=== PATIENT | female | born 1985 | race Caucasian/White ===

== ENCOUNTER 2021-05-02 08:50 | Emergency (ER) | payer OTHER, SELFPAY ==
--- NOTE | ~2021-05-02 | CT_ITS ---
EXAMINATION: CT abdomen pelvis w con INDICATION: Lower abdominal pain TECHNIQUE: Computed tomographic images of the abdomen and pelvis were obtained after the administrati on of 100 cc of Omnipaque 350 intravenous contrast. The dose-length product (DLP) was 1764.80 mGy-cm. Automated exposure control and iterative reconstruction technique were employed. COMPARISON: None available FINDINGS: Minimal dependent atelectasis is present in the lung bases. The heart size is normal. Focal low-attenuation of the liver adjacent to the ligamentum teres likely reflects hepatic steatosis. The spleen, pancreas, gallbladder, and adrenal glands are normal cysts of the kidneys measure up to 10 m m on the left. There is cortical scarring of the right kidney. No pathologically enlarged abdominal o r pelvic lymph nodes are identified. There is no free intraperitoneal gas or evidence of bowel obstru ction. The appendix is normal. There is mild lumbar spondylosis. IMPRESSION: 1. No CT correlate for the patient's symptoms. Reviewed, dictated and finalized at location B.
[2021-05-02 09:05] VITALS: BP 150/100; PULSE 119; RESP 16; TEMP 36.6; O2SAT 98
[2021-05-02 09:30] LABS: Basophils Percent Auto 0.3 % (0.2-1.2); Eosinophils Absolute Auto 0.1 K/mm3 (0-0.3); Eosinophils Percent Auto 1.3 % (0-4.4); Hematocrit 40.6 % (37.0-47.0); Hemoglobin 12.8 g/dL (12.0-15.0); Immature Granulocyte Absolute 0.12 K/mm3 (0.00-0.031); Immature Granulocyte Percent A 1.3 % (0-0.5); Lymphocytes Percent Auto 22.7 % (18.3-44.2); Mean Corpuscular HGB Conc 31.5 g/dl (32-36); Mean Corpuscular Hemoglobin 26.4 pg (26-34); Mean Corpuscular Volume 83.7 fl (80-100); Mean Platelet Volume 9.4 fl (7.4-10.4); Monocytes Absolute Auto 0.9 K/mm3 (0.1-0.6); Monocytes Percent Auto 9.3 % (2.6-8.5); Neutrophils Percent Auto 65.1 % (45.5-73.1); Platelet Count Result 250 k/mm3 (150-375); Red Blood Count 4.85 M/mm3 (4.2-5.4); Red Cell Distribution Width 13.2 % (11.5-14.5); White Blood Count 9.2 K/mm3 (4.5-10.0)
[2021-05-02 09:31] LABS: Add Urine Microscopic? YES; Appearance Urine Cloudy (Clear); Bilirubin Urine Negative (Negative); Blood Urine Negative (Negative); Color Urine Yellow (Yellow); Glucose Urine UA Negative (Negative); Ketones Urine Negative (Negative); Leukocyte Esterase Ur Negative LEU/UL (Negative); Mucus Urine Rare /lpf; Nitrate Urine Negative (Negative); Protein Urine Negative (Negative); RBC Urine 0-2 /hpf (0-2); Specific Grav Ur 1.019 (1.001-1.035); Squamous Epithelial Cell Urine Few /hpf (Few); Urobilinogen Urine Negative mg/dL (<2.0)
[2021-05-02 09:38] LABS: Alanine Aminotransferase 41 U/L (4-35); Albumin Level 3.6 g/dL (3.5-5.1); Alkaline Phosphatase 106 U/L (38-126); Anion Gap 5 mmol/L (8-16); Aspartate Amino Transferase 42 U/L (14-36); Bilirubin,Total 0.5 mg/dL (0.2-1.3); Blood Urea Nitrogen 12 mg/dL (7-17); Calcium 8.6 mg/dL (8.4-10.2); Carbon Dioxide 27 mmol/L (22-30); Chloride 107 mmol/L (98-107); Estimated CRCL calculation 135 ml/min; Estimated Glomerular Filt Rate > 60; Glucose 103 mg/dL (65-105); Lipase 66 U/L (23-300); Potassium 3.6 mmol/L (3.4-5.0); Sodium 139 mmol/L (137-145)
--- NOTE | 2021-05-02 10:30 | ED.ABDPAIN ---
HPI - Abdominal Pain General Chief Complaint: Abdominal Pain Stated Complaint: abdominal pain Time Seen by Provider: 05/02/21 09:34 Source: patient and RN notes reviewed Mode of arrival: ambulatory Limitations: no limitations History of Present Illness HPI narrative: Patient is 46 years old white female presents with intermittent diffuse lower abdominal pain for the last 4 weeks, patient noticed a lump at the lower abdomen bilaterally 1 week ago, patient denies any fever, chills, nausea, vomiting, urinary symptoms, vaginal bleeding or discharge. Patient under a lot of stress lately her was diagnosed of testicular cancer scheduled for surgery next week. Patient does not smoke or drink or uses marijuana. No history of abdominal surgery. History of both cystic ovarian disease, Raynaud's phenomena Related Data Allergies Allergy/AdvReac Type Severity Reaction Status Date / Time No Known Allergies Allergy Unverified 07/28/18 08:24 Review of Systems Review of Systems: Narrative: CONSTITUTIONAL: Denies fever, chills, or sweats. EYES: Denies visual changes, redness, or discharge. ENT: Denies rhinorrhea, congestion, sore throat, or otalgia. CARDIOVASCULAR: Denies chest pain, palpitations, or edema. RESPIRATORY: Denies cough or dyspnea. GASTROINTESTINAL: Denies abdominal pain, nausea, vomiting, or diarrhea. GENITOURINARY: Denies dysuria or hematuria. SKIN: Denies rash or itching. MUSCULOSKELETAL: Denies back pain, joint pain, or myalgia. NEUROLOGIC: Denies headache, numbness, or weakness. PSYCHIATRIC: Denies anxiety or depression. Exam Narrative: Exam Narrative: General appearance: Well-developed, well-nourished Skin: Normal color Head: Normocephalic, nontraumatic Eyes: Clear conjunctiva ENT: Oropharynx normal, ears normal, nose normal Neck: Supple, nontender Chest and respiratory: Airway patent, no respiratory distress, no accessory muscle use Heart: Regular rate/rhythm Abdomen: Soft, nontender, no organomegaly, quiet bowel sounds Vascular: Normal peripheral pulses, normal capillary refill. Musculoskeletal: Normal range of motion, nontender back Neurologic: Alert and oriented ?3, [employer] is normal as tested, no gross motor deficit Course Course Emergency Course: Stable Vital Signs Vital signs: Vital Signs Temperature 36.6 C 05/02/21 09:05 Pulse Rate 119 H 05/02/21 09:05 Respiratory Rate 16 05/02/21 09:05 Blood Pressure 150/100 H 05/02/21 09:05 Pulse Oximetry 98 05/02/21 09:05 Temperature 36.6 C 05/02/21 09:05 Pulse Rate 119 H 05/02/21 09:05 Respiratory Rate 16 05/02/21 09:05 Blood Pressure 150/100 H 05/02/21 09:05 Pulse Oximetry 98 05/02/21 09:05 MDM - Abdominal Pain MDM Narrative Medical decision making narrative: Abdominal pain Stress, anxiety related symptom is my concern. Labs, CT abdomen pelvis with IV contrast, UA ordered. Further plan to follow Differential Diagnosis Differential diagnosis: Likely abdominal pain, acute appendicitis, constipation, diverticulitis and pancreatitis Lab Data Result diagrams: 05/02/21 09:15 05/02/21 09:15 Labs: Lab Results 05/02/21 05/02/21 05/02/21 Range/Units 09:15 09:15 09:15 WBC 9.2 (4.5-10.0) K/mm3 RBC 4.85 (4.2-5.4) M/mm3 Hgb 12.8 (12.0-15.0) g/dL Hct 40.6 (37.0-47.0) % MCV 83.7 (80-100) fl MCH 26.4 (26-34) pg MCHC 31.5 L (32-36) g/dl RDW 13.2 (11.5-14.5) % Plt Count 250 (150-375) k/mm3 MPV 9.4 (7.4-10.4) fl Immature Gran % (Auto) 1.3 H (0-0.5) % Neut % (Auto) 65.1 (45.5-73.1) % Lymph % (Auto) 22.7 (18.3-44.2) % Hayes % (Auto) 9.3 H (2.6-8.5) % Eos % (Au
[2021-05-02] MEDS: SODIUM CHLORIDE 0.9% IV 1,000 ML 999 ML IV CONT (10:45)
[2021-05-02 11:59] VITALS: BP 152/97; PULSE 97; RESP 16
== END 2021-05-02 11:57 | disposition home or self-care (01) ==
PROVIDERS: Emergency Provider Emergency Medicine; PCP Family Medicine
DX: R10.84 Generalized abdominal pain (principal)
CPT/HCPCS: 36415; 74177; 80053; 81001; 81025; 83690; 85025; 87077; 87086; 87088; 87186; 96360; 99284; J7030; Q9967

== ENCOUNTER 2021-05-14 16:00 | Emergency (ER) | payer OTHER, SELFPAY ==
--- NOTE | ~2021-05-14 | XR_ITS ---
EXAMINATION: XR chest 2V EXAM DATE: 05/14/2021 16:42 INDICATION: sob, high blood pressure, chest tightness, symptoms 2 days. TECHNIQUE: Frontal and lateral projections of the chest obtained and reviewed. There is no prior zeyad dy for comparison. FINDINGS: The lungs are clear. There are no pleural effusions. The cardiomediastinal silhouette is within normal limits. There is no pneumothorax suspected. The bones and soft tissues are unremarkab le. IMPRESSION: No acute cardiopulmonary findings. Reviewed, dictated and finalized at location A.
--- NOTE | ~2021-05-14 | CT_ITS ---
EXAMINATION: CTA chest PE protocol DATE: 05/14/2021 20:09 INDICATION: Dyspnea TECHNIQUE: Computed tomography (CT) pulmonary angiogram of the chest was performed with 100 mL Omnipa que-350 intravenous contrast. Additional 3D reconstructions utilizing coronal maximum intensity proje ction (MIP) were performed. Automated exposure control and iterative reconstruction technique were em ployed. The dose-length product was 1048.00 mGy-cm. COMPARISON: None FINDINGS: Adequate but suboptimal contrast opacification of the pulmonary arteries. There is mild streak artifa ct from dense contrast in the superior vena cava and right atrium. Minimal scattered respiratory burt on artifact which does not significantly limit evaluation. No pulmonary embolism. No pneumonia, pulmo nary edema or other pulmonary infiltrates. No pleural effusion or pneumothorax. Heart size is normal. No pericardial effusion. Thoracic aorta is normal in caliber with no dissection. No pathologically e nlarged thoracic lymphadenopathy. Focal hepatic steatosis at the ligamentum teres. Likely physiologic chronic appearing mild anterior wedging at T11 and T12. IMPRESSION: 1. No pulmonary embolism or other acute cardiopulmonary disease. Reviewed, dictated and finalized at location A.
[2021-05-14 16:03] VITALS: BP 144/86; PULSE 116; RESP 20; TEMP 37.1; O2SAT 99
--- NOTE | 2021-05-14 16:03 | ECG_ITS ---
Measurements Intervals [place] Rate: 114 P: 54 [place]: 168 QRS: -9 QRSD: 83 T: 18 QT: 329 QTc: 454 Interpretive Statements SINUS TACHYCARDIA POSSIBLE LEFT ATRIAL ENLARGEMENT POOR R WAVE PROGRESSION, ANTERIOR LEADS MINIMAL Q WAVES- INFERIOR LEADS BORDERLINE T WAVE ABNORMALITY- INFERIOR LEADS BASELINE WANDER- V4-V5 ABNORMAL ECG Electronically Signed On 05-14-2021 21:08:03 CDT by Artur Hughes D.O.
[2021-05-14 16:34] LABS: Basophils Absolute Auto 0.1 K/mm3 (0.0-0.1); Basophils Percent Auto 0.6 % (0.2-1.2); Eosinophils Absolute Auto 0.1 K/mm3 (0-0.3); Eosinophils Percent Auto 1.5 % (0-4.4); Hematocrit 42.2 % (37.0-47.0); Hemoglobin 13.2 g/dL (12.0-15.0); Immature Granulocyte Absolute 0.13 K/mm3 (0.00-0.031); Immature Granulocyte Percent A 1.5 % (0-0.5); Lymphocytes Absolute Auto 2.04 K/mm3 (0.9-3.2); Lymphocytes Percent Auto 23.2 % (18.3-44.2); Mean Corpuscular HGB Conc 31.3 g/dl (32-36); Mean Corpuscular Hemoglobin 26.1 pg (26-34); Mean Corpuscular Volume 83.4 fl (80-100); Mean Platelet Volume 9.6 fl (7.4-10.4); Monocytes Absolute Auto 0.7 K/mm3 (0.1-0.6); Neutrophils Absolute Auto 5.7 K/mm3 (1.3-6.7); Neutrophils Percent Auto 65.2 % (45.5-73.1); Platelet Count Result 313 k/mm3 (150-375); Red Blood Count 5.06 M/mm3 (4.2-5.4); Red Cell Distribution Width 13.7 % (11.5-14.5); White Blood Count 8.8 K/mm3 (4.5-10.0)
[2021-05-14 16:38] LABS: Anion Gap 7 mmol/L (8-16); Blood Urea Nitrogen 15 mg/dL (7-17); Calcium 8.8 mg/dL (8.4-10.2); Carbon Dioxide 26 mmol/L (22-30); Chloride 104 mmol/L (98-107); Estimated CRCL calculation 111 ml/min; Estimated Glomerular Filt Rate > 60; Glucose 89 mg/dL (65-105); Potassium 3.8 mmol/L (3.4-5.0); Sodium 137 mmol/L (137-145)
[2021-05-14 18:46] VITALS: BP 153/90; PULSE 109; RESP 18; O2SAT 100
[2021-05-14 19:55] VITALS: BP 140/99
[2021-05-14 20:11] VITALS: BP 150/81; PULSE 108; RESP 19; O2SAT 100
[2021-05-14 20:17] LABS: Troponin I < 0.012 ng/mL (0.000-0.034)
--- NOTE | 2021-05-14 20:33 | ED.SOB ---
HPI - SOB/Dyspnea General Chief Complaint: Shortness of Breath/Dyspnea Stated Complaint: SOB X2D Time Seen by Provider: 05/14/21 19:18 Source: RN notes reviewed History of Present Illness HPI Narrative: Patient presents emergency department from home for shortness of breath. Patient states for the past 2 days she has noted shortness of breath with exertion she states no shortness of breath with rest just she notes that when she is doing activity she states that with this she has no other symptoms she denies any fevers or chills, chest pain, abdominal pain, nausea vomiting or any other symptoms. Patient states she has been worked up for a autoimmune disease and is believed to have Raynaud's patient denies any cough she does states she has not had the Covid vaccine Related Data Allergies Allergy/AdvReac Type Severity Reaction Status Date / Time No Known Allergies Allergy Unverified 07/28/18 08:24 Review of Systems Review of Systems: Narrative: Gen.: Denies fevers or chills ENT: Denies congestion Respiratory: See HPI CV: Denies chest pain or palpitations GI: Denies abdominal pain nausea, emesis or diarrhea denies burning, urgency, frequency or hematuria Musculoskeletal: Denies back pain or muscle pain Neuro: Denies numbness, tingling, weakness or focal weakness Skin: Denies rash Except as documented, all other systems reviewed and negative Exam Narrative: Exam Narrative: APPEARANCE: No acute distress, nontoxic, resting in bed EYES: EOMI HEENT: Normocephalic, atraumatic, OMM RESPIRATORY: No respiratory distress Clear to auscultation bilaterally with no rhonchi wheezing or rales. CARDIOVASCULAR: Regular rate and rhythm without murmurs rubs or gallops. ABDOMINAL: Soft, nontender, nondistended, no rebound or guarding MUSCULOSKELETAl: Moves all extremities. No clubbing, cyanosis or edema. NEURO: Awake and alert. Following commands, speech normal, no focal deficits SKIN:: Warm, dry. No rashes lesions or abrasions PSYCHIATRIC: Normal affect/mood, Course Course Emergency Course: Called and discussed with Dr. Ingram's PA on-call agrees with plan for discharge and will have patient follow-up in the office in neck several days for repeat blood pressure check Discussed with patient results of workup and diagnosis. Discussed need for follow-up with primary care, proper use of medication, and reasons to return to the emergency department. Patient understands and agrees to current treatment plan Vital Signs Vital signs: Vital Signs Temperature 98.8 F 05/14/21 16:03 Pulse Rate 116 H 05/14/21 16:03 Respiratory Rate 20 05/14/21 16:03 Blood Pressure 144/86 H 05/14/21 16:03 Pulse Oximetry 99 05/14/21 16:03 Temperature 98.8 F 05/14/21 16:03 Pulse Rate 108 H 05/14/21 20:11 Respiratory Rate 19 05/14/21 20:11 Blood Pressure 150/81 H 05/14/21 20:11 Pulse Oximetry 100 05/14/21 20:11 MDM - SOB/Dyspnea MDM Narrative Medical decision making narrative: Patient has dyspnea of unclear etiology. No wheezing on clinical exam. No PE seen on CTA chest no pneumonia seen. Patient?s EKG is without high-risk changes. Oxygen saturations are normal. Patient is felt to be a reasonable candidate for additional evaluation as an outpatient.. With the current COVID-19 pandemic and resurgence of delta variant as patient has not been vaccinated will obtain Covid swab Lab Data Result diagrams: 05/14/21 16:16 05/14/21 16:16 Labs: Lab Results 05/14/21 05/14/21 05/14/21 Range/Units 16:16 16:16 19:44 WBC 8.8 (4.5-10.0) K/mm3 RBC 5.06 (4.2-5.4) M/mm3 Hgb 13.2 (12.0-15.0) g/dL Hct 42.2 (37.0-47.0) % MCV 83.4 (80-100) fl MCH 26.1 (26-34) pg MCHC 31.3 L (32-36) g/dl RDW 13.7 (11.5-14.5) % Plt Count 313 (150-375) k/mm3 MPV 9.6 (7.4-10.4) fl Immature Gran % (Auto) 1.5 H (0-0.5) % Neut % (Auto) 65.2 (45.5-73.1) % Lymph % (Auto) 23.2 (18.3-
[2021-05-14] MEDS: SODIUM CHLORIDE 0.9% IV 1,000 ML 999 ML IV CONT (20:37)
[2021-05-14 21:03] LABS: D Dimer < 0.22 ug/mL (<0.48)
[2021-05-14 21:50] VITALS: BP 142/98; PULSE 100; RESP 20; TEMP 36.9; O2SAT 100
--- NOTE | 2021-05-20 11:11 | PC.NURSE ---
Late Entry-Pt discharged prior to obtaining covid swab.
--- NOTE | 2021-05-22 15:19 | PC.NURSE ---
LATE ENTRY This note is being entered to document information to the patient's record. The following information was omitted on [05/14/21], by [Caro Nunez RN]. NS stopped at 2130.
== END 2021-05-14 21:50 | disposition home or self-care (01) ==
PROVIDERS: Emergency Provider Emergency Medicine; PCP Family Medicine
DX: R06.00 Dyspnea, unspecified (principal); R00.0 Tachycardia, unspecified
CPT/HCPCS: 36415; 71046; 71275; 80048; 81025; 84484; 85025; 85380; 93005; 96360; 99284; J7030; Q9967

== ENCOUNTER → 2021-09-13 09:37 | Outpatient (CLI) | payer OTHER, SELFPAY ==
--- NOTE | ~2021-09-13 | US_ITS ---
EXAMINATION: US right upper quadrant DATE: 09/13/2021 10:17 INDICATION: Elevated liver enzymes TECHNIQUE: Multiple grayscale and Doppler ultrasound images of the abdomen were obtained. COMPARISON: None available FINDINGS: Bowel gas obscures visualization of the pancreas. The visualized portions of the pancreas a re unremarkable. The liver is normal with normal echogenicity and echotexture. No surface nodularity. Normal hepatopetal flow in the main portal vein. The gallbladder is normal with no abnormal wall thi ckening, pericholecystic fluid or stones. The normal common bile duct measures 2 mm. There was no son ographic Hayden sign. IMPRESSION: 1. No sonographic correlate for the patient's symptoms. Reviewed, dictated and finalized at location A. [employer]
== END ==
PROVIDERS: PCP Family Medicine; Visit Provider Internal Medicine
DX: R79.89 Other specified abnormal findings of blood chemistry (principal)
CPT/HCPCS: 76705

== ENCOUNTER 2021-11-26 13:07 | Emergency (ER) | payer OTHER, SELFPAY ==
--- NOTE | ~2021-11-26 | XR_ITS ---
XR chest 2V 11/26/2021 14:15 Indication: Left-sided chest pain Procedure: 2 view chest Comparison: 05/14/2021 Findings: Heart size normal. No focal air space disease, pulmonary edema, pleural effusion or suspect ed pneumothorax. No acute osseous abnormality. Impression: 1: No acute cardiopulmonary disease. Reviewed, dictated and finalized at location B. [employer]ER Impression: 1: No acute cardiopulmonary disease.
[2021-11-26 13:52] VITALS: BP 136/89; PULSE 107; RESP 20; TEMP 36.8; O2SAT 100
--- NOTE | 2021-11-26 13:57 | ECG_ITS ---
Measurements Intervals [place] Rate: 102 P: 21 [place]: 140 QRS: 86 QRSD: 89 T: 41 QT: 334 QTc: 437 Interpretive Statements SINUS TACHYCARDIA LOW QRS VOLTAGE IN PRECORDIAL LEADS BORDERLINE R WAVE PROGRESSION, ANTERIOR LEADS BASELINE WANDER- V4-V5 BORDERLINE ECG Electronically Signed On 11-26-2021 15:43:59 EX CHEF by Artur Hughes D.O.
[2021-11-26 14:38] LABS: Prothrombin Time 12.6 Seconds (11.1-14.7)
[2021-11-26 14:39] LABS: Partial Thromboplastin Time 31.5 SECONDS (22.3-36.8)
[2021-11-26 14:45] LABS: Basophils Percent Auto 0.5 % (0.2-1.2); Eosinophils Absolute Auto 0.1 K/mm3 (0-0.3); Eosinophils Percent Auto 1.8 % (0-4.4); Hematocrit 42.2 % (37.0-47.0); Hemoglobin 13.6 g/dL (12.0-15.0); Immature Granulocyte Percent A 1.3 % (0-0.5); Lymphocytes Absolute Auto 1.48 K/mm3 (0.9-3.2); Lymphocytes Percent Auto 19.4 % (18.3-44.2); Mean Corpuscular HGB Conc 32.2 g/dl (32-36); Mean Corpuscular Hemoglobin 25.9 pg (26-34); Mean Corpuscular Volume 80.4 fl (80-100); Mean Platelet Volume 10.3 fl (7.4-10.4); Monocytes Absolute Auto 0.6 K/mm3 (0.1-0.6); Monocytes Percent Auto 7.3 % (2.6-8.5); Neutrophils Absolute Auto 5.3 K/mm3 (1.3-6.7); Neutrophils Percent Auto 69.7 % (45.5-73.1); Platelet Count Result 272 k/mm3 (150-375); Red Blood Count 5.25 M/mm3 (4.2-5.4); Red Cell Distribution Width 14.5 % (11.5-14.5); White Blood Count 7.6 K/mm3 (4.5-10.0)
[2021-11-26 14:55] LABS: Alanine Aminotransferase 39 U/L (4-35); Albumin Level 3.8 g/dL (3.5-5.1); Alkaline Phosphatase 99 U/L (38-126); Anion Gap 7 mmol/L (8-16); Aspartate Amino Transferase 49 U/L (14-36); Bilirubin,Total 0.3 mg/dL (0.2-1.3); Blood Urea Nitrogen 8 mg/dL (7-17); Calcium 9.2 mg/dL (8.4-10.2); Carbon Dioxide 28 mmol/L (22-30); Chloride 103 mmol/L (98-107); Estimated CRCL calculation 145 ml/min; Estimated Glomerular Filt Rate > 60; Glucose 99 mg/dL (65-110); Lipase 68 U/L (23-300); Potassium 3.6 mmol/L (3.4-5.0); Sodium 138 mmol/L (137-145); Troponin I < 0.012 ng/mL (0.000-0.034)
[2021-11-26 15:35] VITALS: BP 105/61; PULSE 90; TEMP 37; O2SAT 99
[2021-11-26 17:30] VITALS: PULSE 60; O2SAT 99
--- NOTE | 2021-11-26 17:45 | ED.CHESTPAIN ---
HPI - Chest Pain General Chief Complaint: Chest Pain Stated Complaint: chest pain with movement & inspiration Time Seen by Provider: 11/26/21 17:21 Source: patient and RN notes reviewed Limitations: no limitations History of Present Illness HPI narrative: 36-year-old female presenting to the emergency department for evaluation of some left-sided chest pain. Patient states that this morning she was having some left-sided chest pain that worsened with inspiration. Patient states over the course of the day the pain has almost completely resolved. Patient states she only has pain if she takes a deep breath. Patient denies any shortness of breath. Patient does report that she has been having increased issues with GERD including last night. Patient states that the symptoms started on the morning but have improved throughout the day. Patient did have evaluation by her primary care physician regarding the GERD and patient was switched from omeprazole to Protonix 40 mg twice daily. Patient denies any prior history of PE or DVT. Patient denies any swelling of her lower extremities or calf tenderness. Related Data Allergies Allergy/AdvReac Type Severity Reaction Status Date / Time No Known Allergies Allergy Unverified 07/28/18 08:24 Review of Systems Review of Systems: CONSTITUTIONAL: Denies fever, chills, or sweats. EYES: Denies visual changes, redness, or discharge. ENT: Denies rhinorrhea, congestion, sore throat, or otalgia. CARDIOVASCULAR: Left-sided chest tightness/pain RESPIRATORY: Denies cough or dyspnea. GASTROINTESTINAL: Does report worsening GERD symptoms GENITOURINARY: Denies dysuria or hematuria. SKIN: Denies rash or itching. MUSCULOSKELETAL: Denies back pain, joint pain, or myalgia. NEUROLOGIC: Denies headache, numbness, or weakness. Exam Narrative: APPEARANCE: Well appearing, no pain, no distress, well-nourished. HEAD: normocephalic, atraumatic. EYES: PERRLA/EOMI, conjunctivae clear. NOSE: Normal no drainage NECK: Supple. No adenopathy, no masses. RESPIRATORY: Airway patent, respirations nonlabored. Clear to auscultation bilaterally, no rales, rhonchi, wheezing. CARDIOVASCULAR: Regular rate and rhythm without murmurs rubs or gallops. Some tenderness to palpation over the left chest ABDOMINAL: Soft, nontender, nondistended, normal bowel sounds MUSCULOSKELETAL: Moves all extremities. Strength/ROM intact, No edema, No calf tenderness. NEURO: Alert. Cranial nerves II through XII intact. Good gait. Good coordination SKIN: Warm, dry. Normal Color PSYCHIATRIC: Normal affect/mood. Course Course Emergency Course: Patient's symptoms have been constant since this morning. Patient's EKG showed no evidence of acute STEMI. Patient's troponin was negative. Patient D-dimer was not elevated. Low concern for ACS or PE in this patient. I feel the patient's symptoms are most likely due to microaspiration due to her recent GERD. Patient is already on increased medication for this. Patient was updated on the results of her work-up and diagnosis. All questions and concerns were addressed. Patient was comfortable with the plan for discharge and close follow-up. Vital Signs Vital signs: Vital Signs Temperature 98.2 F 11/26/21 13:52 Pulse Rate 107 H 11/26/21 13:52 Respiratory Rate 20 11/26/21 13:52 Blood Pressure 136/89 11/26/21 13:52 Pulse Oximetry 100 11/26/21 13:52 Temperature 98.6 F 11/26/21 15:35 Pulse Rate 80 11/26/21 18:50 Respiratory Rate 17 11/26/21 18:50 Blood Pressure 130/74 11/26/21 18:50 Pulse Oximetry 98 11/26/21 18:50 MDM - Chest Pain Lab Data Attestation: I reviewed the patient's lab results. Result diagrams: 11/26/21 14:11 11/26/21 14:11 Labs: Lab Results 11/26/21 11/26/21 11/26/21 Range/Units 14:11 14:11 14:11 WBC 7.6 (4.5-10.0) K/mm3 RBC 5.25 (4.2-5.4) M/mm3 Hgb 13.6 (12.0-15.0) g/dL Hct 42.2 (37.0-47.0) % MCV 80.4 (80-1
[2021-11-26 18:12] VITALS: BP 118/75; PULSE 87; RESP 14; O2SAT 97; O2SAT 99
[2021-11-26 18:21] LABS: Troponin I < 0.012 ng/mL (0.000-0.034)
[2021-11-26 18:50] VITALS: BP 130/74; PULSE 80; RESP 17; O2SAT 98
== END 2021-11-26 18:50 | disposition home or self-care (01) ==
PROVIDERS: Emergency Medicine; Emergency Provider Emergency Medicine; PCP Family Medicine
DX: K21.9 Gastro-esophageal reflux disease without esophagitis (principal); R07.89 Other chest pain; R00.0 Tachycardia, unspecified; R94.31 Abnormal electrocardiogram [ECG] [EKG]
CPT/HCPCS: 36415; 71046; 80053; 83690; 84484; 85025; 85380; 85610; 85730; 93005; 99284

== ENCOUNTER 2022-01-14 00:17 | Day surgery (SDC) | payer OTHER, SELFPAY ==
[2022-01-02 14:28] VITALS: BMI 41.5
[2022-01-14 07:32] VITALS: BP 144/95; PULSE 86; RESP 20; TEMP 36.6; O2SAT 95
[2022-01-14] MEDS: LACTATED RINGERS 1,000 ML 150 ML IV CONT (07:46)
--- NOTE | 2022-01-14 07:52 | WPDANESEPPF ---
Anes - Initial Pre Proc Eval Procedure: Operation Date: 01/14/22 08:30 Proposed Procedures p Esophagogastroduodenoscopy - Fermín Huggins MD Date/Time: 01/14/22 07:52 Surgeon: Fermín Huggins MD Pre Op Diagnosis: dysphagia Patient Data Age: 36 Gender: F Height: 1.8 m Weight: 134.3 kg Last Vital Signs Temp 36.6 C 01/14/22 07:32 Pulse 86 01/14/22 07:32 Resp 20 01/14/22 07:32 BP 144/95 H 01/14/22 07:32 Pulse Ox 95 01/14/22 07:32 Allergies Allergy/AdvReac Type Severity Reaction Status Date / Time No Known Allergies Allergy Verified 01/14/22 07:29 Home Medications Medication Instructions Recorded Confirmed Type albuterol 90 mcg INHALATION DAILY 01/02/22 01/02/22 History amlodipine 5 mg PO DAILY 01/02/22 01/02/22 History fluticasone furoate-vilanterol 1 inh INHALATION PRN 01/02/22 01/02/22 History [Breo Ellipta] hydroxychloroquine 200 mg PO DAILY 01/02/22 01/02/22 History meloxicam 7.5 mg PO DAILY 01/02/22 01/02/22 History metformin 500 mg PO DAILY 01/02/22 01/02/22 History metoprolol succinate 50 mg PO DAILY 01/02/22 01/02/22 History mycophenolate mofetil 500 mg PO Q12H 01/02/22 01/02/22 History pantoprazole 40 mg PO BID 01/02/22 01/02/22 History Patient hx anesthesia problems: none Family hx anesthesia problems: none Results Review: All pre-operative results and documents have been reviewed as part of the pre-operative evaluation. [facility], [facility] Past Medical History Medical History (Updated 01/14/22 @ 07:53 by Job Moya MD) Asthma Morbid obesity Tachycardia Surgical History Surgical History (Updated 01/14/22 @ 07:53 by Job Moya MD) History of section Social History Social History Smoking status: Former smoker Tobacco type: cigarettes Alcohol intake: never Substance use: never Substance use type: does not use Living arrangements: with family Spiritual care concerns: No Anes - Eval Final PreProcedure Day of Procedure 01/14/22 07:52 Patient weight: morbidly obese Heart: regular rate and rhythm Lungs: clear to auscultation Airway: Mallampati scale class II Neurological: alert and oriented Last oral intake: >/= 8 hours ASA classification: III Emergent: no Anesthetic plan: proceed Anesthesia type and monitoring: general GIVS and standard monitoring Results Review: All pre-operative results and documents have been reviewed as part of the pre-operative evaluation. Informed Consent: The patient's anesthetic plan and its attendant risks and benefits were discussed with the patient/family/POA. Questions were solicited and answers provided to the satisfaction of the patient/family/POA.
--- NOTE | 2022-01-14 08:23 | PM.HPGS ---
History of Present Illness History of Present Illness Consent: Risks, benefits, and alternatives have been discussed and questions answered. Patient agrees to proceed with procedure. Chief complaint: dysphagia Narrative: Felicia Flood is a 36 year old female with GERD and dysphagia after eating since June, had unremarkable CT scan, using protonix bid that is helping some. Never had EGD Review of Systems Constitutional: Constitutional: Denies headache(s) and Denies weakness Eyes: Eyes: Denies blurry vision ENT: Reports Normal hearing present, Denies headache(s) and Denies neck pain Cardiovascular: Cardiovascular: Denies chest pain and Denies dyspnea Respiratory: Respiratory: Denies dyspnea Gastrointestinal: Gastrointestinal: Reports no additional gastrointestinal complaints Genitourinary: Genitourinary: Denies dysuria Musculoskeletal: Musculoskeletal: Denies neck pain Integumentary/Breasts: Skin/Breast: Denies dry skin Neurologic: Reports Normal hearing present, Denies headache(s) and Denies weakness Psychiatric: Psychiatric: Denies anxiety Endocrine: Endocrine: Denies change in body appearance Hematologic/Lymphatic: Hematologic/Lymphatic: Denies easy bleeding Allergic/Immunologic: Allergic/Immunologic: Denies urticaria PMFSH Past Medical History Medical History (Updated 01/14/22 @ 08:24 by Fermín Huggins MD) Asthma Dysphagia GERD (gastroesophageal reflux disease) Morbid obesity Tachycardia Surgical History Surgical History (Updated 01/14/22 @ 07:53 by Job Moya MD) History of section Social History Social History Smoking status: Former smoker Tobacco type: cigarettes Alcohol intake: never Substance use: never Substance use type: does not use Living arrangements: with family Spiritual care concerns: No Meds Home Medications and Allergies Home Medications Medication Instructions Recorded Confirmed Type albuterol 90 mcg INHALATION DAILY 01/02/22 01/02/22 History amlodipine 5 mg PO DAILY 01/02/22 01/02/22 History fluticasone furoate-vilanterol 1 inh INHALATION PRN 01/02/22 01/02/22 History [Breo Ellipta] hydroxychloroquine 200 mg PO DAILY 01/02/22 01/02/22 History meloxicam 7.5 mg PO DAILY 01/02/22 01/02/22 History metformin 500 mg PO DAILY 01/02/22 01/02/22 History metoprolol succinate 50 mg PO DAILY 01/02/22 01/02/22 History mycophenolate mofetil 500 mg PO Q12H 01/02/22 01/02/22 History pantoprazole 40 mg PO BID 01/02/22 01/02/22 History Allergies Allergy/AdvReac Type Severity Reaction Status Date / Time No Known Allergies Allergy Verified 01/14/22 07:29 Vital Signs Vital Signs - 24 hr 01/14/22 07:32 Temperature 97.9 F Pulse Rate 86 Respiratory Rate 20 Blood Pressure 144/95 H Pulse Oximetry 95 Exam Const: General: comfortable and no acute distress HENMT: General nose exam: Normal nares present Eyes: General: appearance normal, both eyes and all related structures Neck: Neck: no JVD Resp: Auscultation: clear to auscultation bilaterally Cardio: Rate: regular rate Rhythm: regular rhythm GI: Inspection: non-distended GI Palp: Yes Soft to palpation Skin: General skin exam: normal color Neuro: General: gait normal Speech: normal speech Extrem: General: normal to inspection Psych: Mental Status: mental status grossly normal Assessment and Plan Assessment and plan (1) GERD (gastroesophageal reflux disease): Code(s): K21.9 - Gastro-esophageal reflux disease without esophagitis Status: Acute Assessment and Plan: egd with bx already on ppi (2) Dysphagia: Code(s): R13.10 - Dysphagia, unspecified Status: Acute
[2022-01-14 08:40] VITALS: BP 110/67; PULSE 81; RESP 29; O2SAT 96
[2022-01-14 08:50] VITALS: BP 110/63; PULSE 76; RESP 24; O2SAT 100
[2022-01-14 09:00] VITALS: BP 118/75; PULSE 76; RESP 24; O2SAT 100
== END 2022-01-14 09:21 | disposition home or self-care (01) ==
PROVIDERS: PCP Family Medicine; Visit Provider Internal Medicine Gastroenterology
PROC: 0DJ08ZZ Inspection of Upper Intestinal Tract, Via Natural or Artificial Opening Endoscopic (ICD-10-PCS; CPT 43235; principal; 2022-01-14 08:30)
DX: K21.00 Gastro-esophageal reflux disease with esophagitis, without bleeding (principal); K44.9 Diaphragmatic hernia without obstruction or gangrene; R13.10 Dysphagia, unspecified; K31.84 Gastroparesis; J45.909 Unspecified asthma, uncomplicated; R00.0 Tachycardia, unspecified; E66.01 Morbid (severe) obesity due to excess calories; Z68.41 Body mass index [BMI] 40.0-44.9, adult; Z87.891 Personal history of nicotine dependence; Z79.51 Long term (current) use of inhaled steroids; Z79.84 Long term (current) use of oral hypoglycemic drugs
CPT/HCPCS: 43239; 88305; J2001; J2704; J7120

== ENCOUNTER 2022-03-31 08:02 | Outpatient (CLI) | payer OTHER, SELFPAY ==
--- NOTE | 2022-03-31 12:13 | P.PCNPFT_ITS ---
PFT Procedure Performed PFT Procedure Performed Spirometry with Pre/Post Bronchodilator Plethysmography (Lung Vol) Diffusing Cap (DLCO) Flow Vol Loop PFT Interpretation This is a pulmonary function test with pre and post-bronchodilator spirometry, plethysmography and diffusing capacity. The test was performed and results interpreted in accordance with the 2019 and 2005 ATS/ERS Task Force guidelines respectively using the Global Lung Function Initiative-2012 reference equations. Patient demonstrated good effort and cooperation. Reproducibility criteria were met. The quality of the pre bronchodilator spirometry maneuver was Grade A and post bronchodilator spirometry maneuver was Grade A. Findings: Spirometry: The contour the inspiratory and expiratory flow tracing are normal. The pre bronchodilator FVC is 3.50 L, 77% predicted. The pre bronchodilator FEV1 is 2.95 L, 79% predicted. The FEV1: FVC ratio was 84%. The post bronchodilator FVC is 3.58 L, representing a 2% increase. The post bronchodilator FEV1 is 3.09 L, representing a 5% increase. The post bronchodilator FEV1: FVC ratio was 86%. Plethysmography: The total lung capacity is 4.99 L, 84% predicted. Functional residual capacity is 2.22 L, 66% predicted. The residual volume is 1.16 L, 63% predicted. Diffusing capacity: The diffusing capacity unadjusted for hemoglobin and carboxyhemoglobin is 22.0, 83% predicted. The diffusing capacity adjusted for alveolar volume is 4.82, 107% predicted. Impression: The spirometry is normal without evidence of an obstructive abnormality. The total lung capacity is normal without evidence of an restrictive abnormality. The FVC and FEV1 are mildly decreased without an obst ructive or restrictive abnormality. This is an abnormal but nonspecific finding. the functional residual capacity is decreased with a normal total lung capacity. This is an abnormal but nonspecific finding. There is no significant improvement after inhaling a single dose of albuterol. The diffusing capacity is normal. There are no prior studies for comparison
== END 2022-03-31 08:03 | disposition home or self-care (01) ==
PROVIDERS: PCP Family Medicine; Visit Provider Nurse Practitioner
DX: J45.909 Unspecified asthma, uncomplicated (principal)
CPT/HCPCS: 94060; 94726; 94729